=== PATIENT | female | born 1980 | race Caucasian/White ===

== ENCOUNTER 2016-04-30 16:24 | Emergency (ER) | payer SELFPAY ==
[~2016-04-30] VITALS: Ht 160 cm; Wt 80.2 kg
[~2016-04-30 16:24] MED LIST: BACTRIM,SEPT1 TABLET PO; IBUPROFEN400 MG; PEN-VEE K,VEET500 MG
[2016-04-30] MEDS ORDERED: NORCO 5/3251 TABLET PO (18:00)
[2016-04-30] MEDS ORDERED: DELTASONE20 M1 PO (18:00)
[2016-04-30 18:21] VITALS: BP 139/84
== END 2016-04-30 18:23 | disposition home or self-care (01) ==
LOC: EME 16:24
DX: M54.5 Low back pain (principal); M54.16 Radiculopathy, lumbar region; I10 Essential (primary) hypertension; F17.200 Nicotine dependence, unspecified, uncomplicated
CPT/HCPCS: 99281; 99284; J7512

== ENCOUNTER 2016-11-14 19:46 | Emergency (ER) | payer OTHER ==
[~2016-11-14] VITALS: Ht 160 cm; Wt 82.9 kg
[~2016-11-14 19:46] MED LIST changes: +DELTASONE20 M1 PO; +NORCO 5/3251 TABLET PO
[2016-11-14 20:19] LABS: HEMATOCRIT 40.4 % (36.0-46.0); MCH 31.2 PG (29.0-34.0); MCHC 33.9 G/DL (30.0-36.0); MEAN PLAT.VOLUME 9.1 uM^3 (9.5-12.4); PLATELET COUNT 293 K/uL (156-360); RBC DIS.WIDTH-CV 11.5 % (11.8-14.6); RED BLOOD COUNT 4.39 M/uL (3.80-5.20)
[2016-11-14 20:32] LABS: CHLORIDE 111 mEq/L (99-109); POTASSIUM 4.1 mEq/L (3.7-5.4); SODIUM 142 mEq/L (136-147)
[2016-11-14 20:33] LABS: GLUCOSE 114 mg/dL (70-99)
[2016-11-14 20:35] LABS: ANION GAP 10 MEQ/L (2-14)
[2016-11-14 20:37] LABS: GFR ESTIMATE (CALCULATED) > 59 mL/min/
[2016-11-14 20:38] LABS: UREA NITROGEN (BUN) 18 mg/dL (9-23)
[2016-11-14 20:40] LABS: ADD MIUA? YES; BILIRUBIN NEGATIVE; BLOOD LARGE; COLOR YELLOW ((YELLOW)); GLUCOSE (STRIP) NEGATIVE; KETONES NEGATIVE; LEUKOCYTES SMALL; NITRITE NEGATIVE; PROTEIN (STRIP) NEGATIVE; SPECIFIC GRAVITY 1.013 (1.000-1.030); UROBILINOGEN 0.2 MG/DL (0.2-1.0)
[2016-11-14 20:50] LABS: BACTERIA NONE SEEN /HPF; EPITHELIAL CELLS 1+ /HPF; MUCUS TRACE /LPF; UCUL ADDED? YES; UNCLASSIFIED CRYSTALS 1+ /HPF
[2016-11-14] MEDS ORDERED: KEFLEX500 MG PO (21:42)
[2016-11-14] MEDS ORDERED: NORCO 5/3251 TABLET PO (21:42)
[2016-11-14] MEDS ORDERED: FLEXERIL5 MG PO (21:42)
[2016-11-14 22:22] VITALS: BP 165/97
== END 2016-11-14 22:23 | disposition home or self-care (01) ==
LOC: EME 19:46
DX: N39.0 Urinary tract infection, site not specified (principal); M54.5 Low back pain; I10 Essential (primary) hypertension; F17.200 Nicotine dependence, unspecified, uncomplicated
CPT/HCPCS: 80048; 81003; 85027; 87086; 99281; 99284

== ENCOUNTER 2016-11-21 16:21 | Emergency (ER) | payer OTHER ==
[~2016-11-21] VITALS: Ht 160 cm; Wt 82.2 kg
[~2016-11-21 16:21] MED LIST changes: +FLEXERIL5 MG PO; +KEFLEX500 MG PO
[2016-11-21 16:50] LABS: ADD MIUA? YES; BILIRUBIN NEGATIVE; BLOOD NEGATIVE; COLOR AMBER ((YELLOW)); GLUCOSE (STRIP) NEGATIVE; KETONES 5; LEUKOCYTES SMALL; NITRITE NEGATIVE; PROTEIN (STRIP) 30; SPECIFIC GRAVITY 1.032 (1.000-1.030)
[2016-11-21 17:00] LABS: HEMATOCRIT 39.5 % (36.0-46.0); MCH 31.5 PG (29.0-34.0); MCHC 33.7 G/DL (30.0-36.0); MCV 93.6 FL (83-99); MEAN PLAT.VOLUME 8.4 uM^3 (9.5-12.4); RBC DIS.WIDTH-CV 11.1 % (11.8-14.6); RED BLOOD COUNT 4.22 M/uL (3.80-5.20); WHITE BLOOD COUNT 10.9 K/uL (4.1-10.2)
[2016-11-21 17:05] LABS: CHLORIDE 106 mEq/L (99-109); POTASSIUM 4.4 mEq/L (3.7-5.4); SODIUM 142 mEq/L (136-147)
[2016-11-21 17:06] LABS: PLATELET COUNT 403 K/uL (156-360)
[2016-11-21 17:07] LABS: BACTERIA RARE /HPF; EPITHELIAL CELLS 1+ /HPF; HYALINE CASTS 0-5 /LPF; MUCUS 4+ /LPF; UCUL ADDED? YES; UNCLASSIFIED CRYSTALS 1+ /HPF
[2016-11-21 17:07] LABS: GLUCOSE 127 mg/dL (70-99)
[2016-11-21 17:09] LABS: ANION GAP 9 MEQ/L (2-14)
[2016-11-21 17:11] LABS: GFR ESTIMATE (CALCULATED) > 59 mL/min/
[2016-11-21 17:12] LABS: UREA NITROGEN (BUN) 14 mg/dL (9-23)
[2016-11-21 17:19] LABS: QUANTITATIVE HCG < 4.0 MIU/ML
[2016-11-21] MEDS ORDERED: FLEXERIL10 MG PO (20:39)
[2016-11-21] MEDS ORDERED: MOTRIN800 MG PO (20:39)
[2016-11-21 21:05] VITALS: BP 122/87
== END 2016-11-21 21:07 | disposition home or self-care (01) ==
LOC: EME 16:21
DX: N12 Tubulo-interstitial nephritis, not specified as acute or chronic (principal); I10 Essential (primary) hypertension; F17.200 Nicotine dependence, unspecified, uncomplicated
CPT/HCPCS: 74176; 80048; 81003; 84702; 85027; 87086; 99281; 99284; J1885; J2405; J3010

== ENCOUNTER 2017-09-01 12:26 | Inpatient (IN) | payer OTHER ==
[~2017-09-01] VITALS: Ht 160 cm; Wt 83.4 kg
[2017-09-01] VITALS (8 sets, daily range): BP systolic 101–132; BP diastolic 58–82
[~2017-09-01 12:26] MED LIST changes: +FLEXERIL10 MG PO; +MOTRIN800 MG PO
[2017-09-01 12:59] LABS: BASOPHIL (%) 0.2 % (0-1); EOSINOPHIL (%) 0.7 % (0-5); EOSINOPHIL COUNT 0.1 K/uL (0-0.3); HEMATOCRIT 37.8 % (36.0-46.0); HEMOGLOBIN 13.1 G/DL (11.9-15.5); IMMATURE GRANULOCYTE (%) 0.7 % (0.0-0.7); LYMPHOCYTE (%) 11.4 % (15-42); LYMPHOCYTE COUNT 2.2 K/uL (1.0-2.8); MCHC 34.7 G/DL (30.0-36.0); MCV 92.4 FL (83-99); MONOCYTE (%) 5.7 % (3-12); MONOCYTE COUNT 1.1 K/uL (0-0.8); NEUTROPHIL (%) 81.3 % (45-76); NEUTROPHIL COUNT 15.4 K/uL (1.8-6.4); PLATELET COUNT 308 K/uL (156-360); RBC DIS.WIDTH-CV 12.7 % (11.8-14.6); RBC DIS.WIDTH-SD 43.1 % (39-53); RED BLOOD COUNT 4.09 M/uL (3.80-5.20)
[2017-09-01 13:07] LABS: CHLORIDE 108 mEq/L (99-109); POTASSIUM 3.9 mEq/L (3.7-5.4); SODIUM 142 mEq/L (136-147)
[2017-09-01 13:08] LABS: PTT 26.9 SEC (25-37)
[2017-09-01 13:09] LABS: GLUCOSE 106 mg/dL (70-99)
[2017-09-01 13:13] LABS: CREATININE 0.8 mg/dL (0.6-1.3); GFR ESTIMATE (CALCULATED) > 59 mL/min/
[2017-09-01 13:14] LABS: UREA NITROGEN (BUN) 19 mg/dL (9-23)
[2017-09-01 13:15] LABS: CREATINE KINASE 305 IU/L (1-294); TOTAL CK 305 IU/L (1-294)
[2017-09-01 13:20] LABS: TROP-I INTERPRETATION NEGATIVE; TROPONIN-I < 0.01 ng/mL (0.0-0.30)
[2017-09-01] MEDS ORDERED: MOTRIN800 MG PO (14:13)
[2017-09-01 14:38] LABS: BASE EXCESS -2.4 mEq/L (-3 to +3); BICARBONATE 23.2 mEq/L (22-26); CARBOXY HGB 3.8 % (0-5); METHEMOGLOBIN 1.2 % (0-1.5); PCO2 42 mm Hg (35-45); pH 7.35 (7.35-7.45)
[2017-09-01 14:48] LABS: COMMENTS - BLOOD GASES A+C+; FI02 21 %; SITE RR
[2017-09-01 14:51] LABS: PO2 47 mm Hg (80-100)
[2017-09-01 19:57] LABS: TROP-I INTERPRETATION NEGATIVE; TROPONIN-I 0.02 ng/mL (0.0-0.30)
[2017-09-01 21:12] LABS: BENZODIAZEPINES, URINE SCREEN Negative (200 ng/mL)
[2017-09-02] VITALS (16 sets, daily range): BP systolic 91–160; BP diastolic 58–91
[2017-09-02 05:34] LABS: BASOPHIL (%) 0.2 % (0-1); EOSINOPHIL (%) 1.3 % (0-5); EOSINOPHIL COUNT 0.2 K/uL (0-0.3); HEMATOCRIT 32.6 % (36.0-46.0); IMMATURE GRANULOCYTE (%) 0.5 % (0.0-0.7); LYMPHOCYTE (%) 30.1 % (15-42); LYMPHOCYTE COUNT 3.6 K/uL (1.0-2.8); MCH 30.8 PG (29.0-34.0); MCHC 32.8 G/DL (30.0-36.0); MCV 93.9 FL (83-99); MONOCYTE (%) 7.8 % (3-12); MONOCYTE COUNT 0.9 K/uL (0-0.8); NEUTROPHIL (%) 60.1 % (45-76); NEUTROPHIL COUNT 7.3 K/uL (1.8-6.4); PLATELET COUNT 244 K/uL (156-360); RBC DIS.WIDTH-CV 12.9 % (11.8-14.6); RBC DIS.WIDTH-SD 44.2 % (39-53); RED BLOOD COUNT 3.47 M/uL (3.80-5.20); WHITE BLOOD COUNT 12.1 K/uL (4.1-10.2)
[2017-09-02 05:37] LABS: TROP-I INTERPRETATION NEGATIVE; TROPONIN-I < 0.01 ng/mL (0.0-0.30)
[2017-09-02 05:40] LABS: HEMOGLOBIN 10.7 G/DL (11.9-15.5)
[2017-09-02 05:50] LABS: ALBUMIN 3.3 G/DL (3.2-4.8); ALKALINE PHOSPHATASE 62 IU/L (3-129); ALT (GPT) 39 IU/L (3-49); AST (GOT) 31 IU/L (2-34); CHLORIDE 109 MEQ/L (99-109); CREATININE 0.7 MG/DL (0.6-1.3); GFR ESTIMATE (CALCULATED) > 59 mL/min/; GLUCOSE 91 mg/dL (70-99); MAGNESIUM 2.1 mg/dl (1.3-2.7); PHOSPHORUS 3.3 mg/dL (2.5-4.9); POTASSIUM 3.7 MEQ/L (3.7-5.4); SODIUM 140 MEQ/L (136-147); TOTAL PROTEIN 5.9 G/DL (6.4-8.3); UREA NITROGEN (BUN) 14 mg/dL (9-23)
[2017-09-03 03:34] VITALS: BP 114/65
[2017-09-03 07:33] VITALS: BP 124/77
[2017-09-03 13:13] LABS: APPEARANCE CLEAR ((CLEAR)); BILIRUBIN NEGATIVE; BLOOD MODERATE; COLOR STRAW ((YELLOW)); GLUCOSE (STRIP) NEGATIVE; KETONES NEGATIVE; LEUKOCYTES NEGATIVE; NITRITE NEGATIVE; PROTEIN (STRIP) NEGATIVE; SPECIFIC GRAVITY 1.013 (1.000-1.030); UROBILINOGEN 0.2 MG/DL (0.2-1.0)
[2017-09-03 13:19] LABS: BACTERIA NONE SEEN /HPF; EPITHELIAL CELLS RARE /HPF; MUCUS TRACE /LPF; RED BLOOD CELLS 20-30 /HPF (0-5); UCUL ADDED? NO; WHITE BLOOD CELLS 0-5 /HPF (0-5)
[2017-09-03 15:00] VITALS: BP 137/79
== END 2017-09-03 16:46 | disposition home or self-care (01) | DRG 917 ==
LOC: EME 12:26 → 5SOUTH 14:42 → EDOF 14:42 → ENRESERV 14:47 → 4WEST 16:38 → ENRESERV 09-02 16:52 → 5SOUTH 09-02 17:38
PROVIDERS: Emergency Medicine; Hospitalist; Specialist
DX: T40.1X1A Poisoning by heroin, accidental (unintentional), initial encounter (principal); J96.01 Acute respiratory failure with hypoxia; F11.10 Opioid abuse, uncomplicated; R03.0 Elevated blood-pressure reading, without diagnosis of hypertension; J21.9 Acute bronchiolitis, unspecified; R31.29 Other microscopic hematuria; F17.200 Nicotine dependence, unspecified, uncomplicated; Z71.6 Tobacco abuse counseling; Z71.51 Drug abuse counseling and surveillance of drug abuser; Z98.51 Tubal ligation status; Z87.440 Personal history of urinary (tract) infections
CPT/HCPCS: 36600; 71045; 71250; 80048; 80053; 80306 90; 81003; 82550; 82553; 82803; 83605; 83735; 83880; 84100; 84484; 84702; 85025; 85610; 85730; 87040; 87641; 93005; 94640; 94640 76; 99202; 99281; 99285; J0295; J1644; J7050